=== PATIENT | male | born 1945 | race Caucasian/White ===

== ENCOUNTER 2017-04-10 17:41 | Outpatient (CLI) | payer OTHER ==
[2017-04-10 18:03] LABS: APPEARANCE,URINE Clear (CLEAR); COLOR,URINE Yellow (YELLOW); OCCULT BLOOD,URINE Negative (NEGATIVE); PH URINE 5.5 (5.0 - 8.0); UROBILINOGEN URINE 0.2 Eu (0.2-1.0)
[2017-04-10 18:10] LABS: BASOPHILS % 0.5 (0.0-1.5); EOSINOPHILS % 2.3 % (0.0-6.8); MEAN CORPUSCULAR HEMOGLOBIN 30.8 pg (28.0-34.0); MEAN CORPUSCULAR VOLUME 91.5 fl (80.0-100.0); MONOCYTES % 4.6 % (0.0-11.0); NEUTROPHILS # 6.4 # k/uL (1.4-7.7)
[2017-04-10 18:22] LABS: eGFR (African) 59; eGFR (Non-African) 49
[2017-04-11 01:10] LABS: PROTEIN mg/dL 11 mg/dL
== END 2017-04-10 17:42 ==
LOC: LAB 17:41
PROVIDERS: ATTEND Internal Medicine Nephrology
DX: N19 Unspecified kidney failure (principal)
CPT/HCPCS: 36415; 80053; 81002; 85025

== ENCOUNTER 2017-05-16 14:19 | Outpatient (CLI) | payer OTHER ==
--- NOTE | 2017-05-22 12:35 | OP Clinic Progress Note ---
REASON FOR VISIT: This 71-year-old man is seen with swellings in his neck. They have been there to some degree for at least a year. Sometimes they are a little larger, sometimes they are a little smaller. In the past, he had been a fairly inveterate tobacco chewer. He also had smoked fairly heavily. He has stopped both of these tobacco habits. The patient has a rather lean body habitus. The oral cavity has a slightly narrow mandible and a slightly narrow maxillae. He has a fairly narrow face in general. The cervical vascular sheath chain really does not have significant lymphadenopathy today. There is a very slightly firm carotid without any hard obvious mass. More specifically, the patient points to both submandibular triangle spaces. He does have somewhat hypertrophic submandibular glands that are rather ptotic and hanging down. Bimanual palpation would confirm the diagnosis of moderately hypertrophic submandibular glands that are mild to moderately ptotic. I do not feel other gross cervical lymphadenopathy. There are no gross palpable stones. No other palpable mass in the submandibular triangles bilaterally. PLAN: I went over these findings and observations and highly probable diagnosis of submandibular mild hypertrophy and mild ptosis. I do not believe these need additional workup and evaluation at this point in time. If the picture or the size should change with any significance, I would be happy to re-evaluate him. cc: Dr. Smitha GREER
== END 2017-05-16 14:20 ==
LOC: ENT 14:19
PROVIDERS: ATTEND Otolaryngology
DX: R59.9 Enlarged lymph nodes, unspecified (principal); Z87.891 Personal history of nicotine dependence
CPT/HCPCS: 99213

== ENCOUNTER 2017-09-13 09:50 | Outpatient (CLI) | payer OTHER ==
[2017-09-13 10:16] LABS: BASOPHILS % 0.4 (0.0-1.5); EOSINOPHILS % 5.1 % (0.0-6.8); MEAN CORPUSCULAR HEMOGLOBIN 30.5 pg (28.0-34.0); MEAN CORPUSCULAR VOLUME 88.6 fl (80.0-100.0); MONOCYTES % 4.3 % (0.0-11.0); NEUTROPHILS # 7.7 # k/uL (1.4-7.7)
[2017-09-13 10:23] LABS: APPEARANCE,URINE Clear (CLEAR); COLOR,URINE Yellow (YELLOW); OCCULT BLOOD,URINE Negative (NEGATIVE); UROBILINOGEN URINE 0.2 Eu (0.2-1.0)
[2017-09-13 10:40] LABS: eGFR (African) 55; eGFR (Non-African) 45
[2017-09-14 05:31] LABS: PROTEIN mg/dL 4 mg/dL
== END 2017-09-13 09:52 ==
LOC: LAB 09:50
PROVIDERS: ATTEND Family Medicine
DX: N18.3 Chronic kidney disease, stage 3 (moderate) (principal)
CPT/HCPCS: 36415; 80053; 80061; 81002; 82570; 84156; 85025

== ENCOUNTER → 2017-11-16 | Outpatient (CLI) | payer OTHER ==
[2017-11-16 14:37] LABS: BASOPHILS % 0.3 (0.0-1.5); EOSINOPHILS % 1.1 % (0.0-6.8); MEAN CORPUSCULAR HEMOGLOBIN 30.9 pg (28.0-34.0); MEAN CORPUSCULAR VOLUME 89.7 fl (80.0-100.0); MONOCYTES % 5.4 % (0.0-11.0)
[2017-11-16 15:11] LABS: eGFR (African) 51; eGFR (Non-African) 42
--- NOTE | 2017-11-16 15:52 | Diagnostic Imaging Report ---
JR MARY [facility] [address] [facility] [address] [address] Report Submission Date: Nov 16, 2017 2:28:10 PM MANUFACTURING ENGINEERING TECHNOLOGIST Patient Study Name: ELIER ELY Date: Nov 16, 2017 2:16:20 PM MANUFACTURING ENGINEERING TECHNOLOGIST MRN: [id number] Modality Type: CR Gender: M Description: CHEST : 41 Institution: [facility] Physician: JR MARY Examination: PA and lateral chest. History: Evaluate lung banegsa. Comparison exam: None provided Findings: PA lateral chest demonstrate a normal cardiac and mediastinal silhouette. Right hilar surgical changes. Mild elevation of the right hemidiaphragm. No focal infiltrate. No blunting of the costophrenic margins. Osseous structures are appropriate for age. Impression: No acute appearing pulmonary process. Correlation with older studies recommended when become available. Electronically signed on Nov 16, 2017 2:28:10 PM MANUFACTURING ENGINEERING TECHNOLOGIST by: Dougie GREER
== END ==
LOC: LAB 13:49
PROVIDERS: ATTEND Physician Assistant
DX: R04.2 Hemoptysis (principal)
CPT/HCPCS: 36415; 71020; 80053; 85025; 85651

== ENCOUNTER 2018-05-10 07:31 | Outpatient (CLI) | payer OTHER ==
[2018-05-10 07:50] LABS: BASOPHILS % 0.3 (0.0-1.5); EOSINOPHILS % 3.7 % (0.0-6.8); MEAN CORPUSCULAR HEMOGLOBIN 31.4 pg (28.0-34.0); MEAN CORPUSCULAR VOLUME 92.3 fl (80.0-100.0); MONOCYTES % 4.3 % (0.0-11.0); NEUTROPHILS # 7.5 # k/uL (1.4-7.7)
[2018-05-10 07:54] LABS: COLOR,URINE YELLOW (YELLOW)
[2018-05-10 07:55] LABS: APPEARANCE,URINE CLEAR (CLEAR); OCCULT BLOOD,URINE NEGATIVE (NEGATIVE); PH URINE 5.5 (5.0 - 8.0); UROBILINOGEN URINE 0.2 Eu (0.2-1.0)
[2018-05-10 08:09] LABS: eGFR (African) 48; eGFR (Non-African) 39
[2018-05-11 02:41] LABS: PROTEIN mg/dL 5 mg/dL
== END 2018-05-10 07:33 ==
LOC: LAB 07:31
PROVIDERS: ATTEND Internal Medicine Nephrology
DX: N18.3 Chronic kidney disease, stage 3 (moderate) (principal)
CPT/HCPCS: 36415; 80053; 81002; 82570; 84156; 85025

== ENCOUNTER 2018-10-24 16:36 | Emergency (ER) | payer OTHER ==
--- NOTE | 2018-10-24 16:44 | ED Physician Documentation ---
General Adult - HISTORIAN Historian: patient - HPI Stated Complaint: mid to low back pain after one week Chief Complaint: Low Back Pain/ Injury Onset: days ago (8) Timing: still present Severity: mild Further Comments: yes (He states approx 8 days ago he was walking and he fell on what seemed like dew on the ground. He states he has tried OTC meds and they "work for a while" but the pain returns. States pain is increased with the sitting up motion. He has no loss of control of bowel or bladder.) - ROS CONST: no problems - PAST HX Past History: hypertension, other (GERD) Immunizations: UTD Allergies/Adverse Reactions: Allergies Allergy/AdvReac Type Severity Reaction Status Date / Time No Known Drug Allergies AdvReac No Reaction Unverified 10/24/18 17:10 Home Medications: Ambulatory Orders Medication Instructions Recorded Furosemide 20 mg PO DAILY u2 12/03/12 Acetylcysteine 600 mg PO DAILY av 01/08/18 [Q-Hbadlv-O-Cysteine] Ascorbate Calcium [Vitamin C] 500 mg PO DAILY u2 01/08/18 [id number] E 200 Mg-20 Unit Sfg 1 each PO DAILY av 01/08/18 Magnesium Oxide [Magnesium] 500 mg PO DAILY av 01/08/18 Pantoprazole Sodium 40 mg PO BID u2 01/08/18 Vitamin B Complex 1 each PO DAILY av 01/08/18 - SOCIAL HX Smoking History: cigarettes Alcohol Use: none Drug Use: none - FAMILY HX Family History: No - REVIEWED ASSESSMENTS Nursing Assessment Reviewed: Yes Vitals Reviewed: Yes Progress - Progress Progress: 1800: results discussed and plan. He is agreeable DG ED Results Lab/Radiology - Radiology Radiology Impressions: Thoracic spine 3 views Clinical history pain Technique AP lateral swimmer's Findings: There is multilevel spur formation. No fracture or paravertebral mass is identified. Endplate sclerosis is present at multiple vertebral bodies.. There cervical spondylosis. Impression: Spondylosis of the thoracic spine with no acute pathology. Consider MRI for further evaluation Electronically signed on Oct 24, 2018 5:51:26 PM AIRPORT TRAFFIC CONTROLLER by: Chuck Irizarry Lumbar spine 3 views Clinical history pain Technique AP lateral cone down Findings: There is vacuum cleft formation at L5/S1. Spur formation is present at multiple levels. There is no fracture subluxation. Arthritic changes are present sacroiliac joints. 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 The vertebral body height are preserved. Impression: Lumbar spondylosis most involvement at L5/S1 Electronically signed on Oct 24, 2018 5:52:57 PM AIRPORT TRAFFIC CONTROLLER by: Chuck Irizarry General Adult Physical Exam - PHYSICAL EXAM GENERAL APPEARANCE: no distress EENT: eye inspection normal NECK: normal inspection RESPIRATORY: no resp distress, chest non-tender, breath sounds normal CVS: reg rate & rhythm, heart sounds normal ABDOMEN: soft, no distension BACK: normal inspection, other (pain is 2 with laying. When attempts the sit up motion pain is 7/8 . No pain with palpation. ) SKIN: warm/dry, normal color EXTREMITIES: non-tender NEURO: oriented X3 Discharge Clincal Impression: Back pain Qualifiers: Back pain location: low back pain Chronicity: acute Back pain laterality: bilateral Sciatica presence: without sciatica Qualified Code(s): M54.5 - Low back pain Referrals: Smitha Ramos MD [Primary Care Provider] - 2 Days Comments: 1. Ibuprofen or Tylenol as directed for pain 2. Cyclobenzaprine 10 mg take 1 by mouth every 8 hours as needed for pain 3. Medrol dose pack start tomorrow as directed 4. See PCP in 2-4 days 5. Return to ER for any concerns Condition: Stable Disposition: 01 HOME, SELF-CARE Decision to Admit: NO Date of Decison to Admit: 10/24/18 Decision Time: 18:01
[2018-10-24] MEDS: KETOROLAC TROMETHAMINE 60 MG/2 ML VIAL IM ONE (17:49)
[2018-10-24] MEDS: methylPREDNISolone ACETATE 40 MG/ML VIAL IM ONE (18:10)
[2018-10-24] MEDS: methylPREDNISolone ACETATE 80 MG/ML VIAL IM ONE (18:11)
[2018-10-24 18:38] VITALS: BP 148/68
--- NOTE | 2018-10-25 04:24 | Diagnostic Imaging Report ---
NOAH LORA [facility] [address] [facility] [address] [address] Report Submission Date: Oct 24, 2018 5:52:57 PM SENIOR STEREO COMPILER TEAM LEAD Patient Study Name: ELIER ELY Date: Oct 24, 2018 5:13:56 PM SENIOR STEREO COMPILER TEAM LEAD Modality Type: DX Gender: M Description: SPINE : 41 Institution: [facility] Physician: NOAH LORA Lumbar spine 3 views Clinical history pain Technique AP lateral cone down Findings: There is vacuum cleft formation at L5/S1. Spur formation is present at multiple levels. There is no fracture subluxation. Arthritic changes are present sacroiliac joints. 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 The vertebral body height are preserved. Impression: Lumbar spondylosis most involvement at L5/S1 Electronically signed on Oct 24, 2018 5:52:57 PM SENIOR STEREO COMPILER TEAM LEAD by: Chuck GREER
--- NOTE | 2018-10-25 04:25 | Diagnostic Imaging Report ---
NOAH LORA [facility] [address] [facility] [address] [address] Report Submission Date: Oct 24, 2018 5:51:26 PM CYBER INTELLIGENCE ANALYST Patient Study Name: ELIER ELY Date: Oct 24, 2018 5:12:38 PM CYBER INTELLIGENCE ANALYST Modality Type: DX Gender: M Description: SPINE : 41 Institution: [facility] Physician: NOAH LORA Thoracic spine 3 views Clinical history pain Technique AP lateral swimmer's Findings: There is multilevel spur formation. No fracture or paravertebral mass is identified. Endplate sclerosis is present at multiple vertebral bodies.. There cervical spondylosis. Impression: Spondylosis of the thoracic spine with no acute pathology. Consider MRI for further evaluation Electronically signed on Oct 24, 2018 5:51:26 PM CYBER INTELLIGENCE ANALYST by: Chuck GREER
== END 2018-10-24 18:25 | disposition home or self-care (01) ==
LOC: ED 16:36
DX: M54.5 Low back pain (principal); M47.817 Spondylosis without myelopathy or radiculopathy, lumbosacral region; M47.814 Spondylosis without myelopathy or radiculopathy, thoracic region; W19.XXXA Unspecified fall, initial encounter; Y93.01 Activity, walking, marching and hiking
CPT/HCPCS: 72072; 72100; 96372; 99283; 99284; J1030; J1885

== ENCOUNTER 2019-04-25 16:39 | Emergency (ER) | payer OTHER | END 2019-04-25 16:50 | disposition E | LOC: ED 16:39 | DX: S29.9XXA Unspecified injury of thorax, initial encounter (principal); V49.3XXA Car occupant (driver) (passenger) injured in unspecified nontraffic accident, initial encounter | CPT/HCPCS: 99281; 99282 ==